=== PATIENT | female | born 1980 | race African-American/Black ===

== ENCOUNTER 2021-06-11 14:05 | Emergency (ER) | payer MEDICAID ==
[~2021-06-11] VITALS: Ht 152.4 cm; Wt 118.0 kg
[2021-06-11] MEDS ORDERED: SODIUM CHLORIDE 0.9% 1,000 ML IV ONE (16:45)
[2021-06-11 17:14] LABS: BASOPHILS % 1.2 % (0.0-2.0); EOSINOPHILS % 1.2 % (0.0-5.0); HEMATOCRIT. 29.9 % (36.0-48.0); HEMOGLOBIN. 9.6 g/dL (12.0-16.0); LYMPHOCYTES % 28.2 % (20.0-50.0); MEAN CORPUSCULAR HEMOGLOBIN 22.1 pg (28.0-32.0); MEAN CORPUSCULAR VOLUME 68.4 fL (81.0-99.0); MEAN PLATELET VOLUME 7.6 fl (7.4-10.4); MONOCYTES % 7.6 % (2.0-8.0); NEUTROPHILS % 61.8 % (40.0-76.0); PLATELET 284 x1000/uL (130-400); RED BLOOD CELL COUNT 4.37 mill/uL (4.2-5.4); RED CELL DISTRIBUTION WIDTH 17.6 % (11.6-14.6)
[2021-06-11 17:18] LABS: CHLORIDE 108 mEq/L (98-107)
[2021-06-11 17:24] LABS: HCG SCREEN NEGATIVE
[2021-06-11 17:37] LABS: PLATELET ESTIMATE NORMAL
[2021-06-11 19:17] LABS: KETONES URINE NEGATIVE (NEGATIVE); LEUKOCYTE ESTERASE URINE 1+ (NEGATIVE); NITRITE URINE NEGATIVE (NEGATIVE); OCCULT BLOOD URINE 3+ (NEGATIVE); PROTEIN URINE 3+ (NEGATIVE); SPECIFIC GRAVITY URINE 1.022 (1.005-1.030); UROBILINOGEN URINE 0.2 E.U./dL (0.2-1.0)
[2021-06-11 19:20] LABS: CLARITY URINE TURBID (CLEAR); COLOR URINE BLOODY (YELLOW)
[2021-06-11 20:27] VITALS: BP 141/53
== END 2021-06-11 20:31 | disposition home or self-care (01) ==
LOC: ER 14:05
DX: N93.8 Other specified abnormal uterine and vaginal bleeding (principal); D25.9 Leiomyoma of uterus, unspecified; Z90.49 Acquired absence of other specified parts of digestive tract; Z98.51 Tubal ligation status; Z98.1 Arthrodesis status; Z91.013 Allergy to seafood
CPT/HCPCS: 36415; 76830; 76856; 80053; 81003; 84703; 85025; 86850; 86900; 86901; 87086; 96360; 99284; J7030

== ENCOUNTER 2024-06-30 16:53 | Emergency (ER) | payer MEDICAID ==
[~2024-06-30] VITALS: Ht 152.4 cm; Wt 123.0 kg
[2024-06-30 17:12] VITALS: O2SAT 99
[2024-06-30] MEDS: KETOROLAC 30MG/ML VIAL IM ONE (19:21)
[2024-06-30] MEDS ORDERED: NAPR-681 MT (23:04)
[2024-06-30 23:17] VITALS: BP 150/90; PULSE 75; RESP 20; TEMP 36.6; O2SAT 99
== END 2024-06-30 23:21 | disposition home or self-care (01) ==
LOC: ER 16:53
DX: S89.81XA Other specified injuries of right lower leg, initial encounter (principal); E11.9 Type 2 diabetes mellitus without complications; I10 Essential (primary) hypertension; Z79.1 Long term (current) use of non-steroidal anti-inflammatories (NSAID); Z90.49 Acquired absence of other specified parts of digestive tract; Z90.710 Acquired absence of both cervix and uterus; W18.30XA Fall on same level, unspecified, initial encounter; Y93.89 Activity, other specified; Y92.89 Other specified places as the place of occurrence of the external cause; Y99.8 Other external cause status
CPT/HCPCS: 99283; 73562; 96372; J1885